=== PATIENT | male | born 1965 | race Caucasian/White ===

== ENCOUNTER 2019-11-28 13:36 | Emergency (ER) | payer OTHER ==
[~2019-11-28] VITALS: Ht 165.1 cm; Wt 74.4 kg
[2019-11-28 13:45] VITALS: BP 122/84
--- NOTE | 2019-11-28 13:50 | NUR ---
Pt ambulated to Lobby. Awaiting bed availability
--- NOTE | 2019-11-28 14:25 | NUR ---
Patient ambulated to bed 12. RN evaluating patient at bedside.
--- NOTE | 2019-11-28 15:07 | NUR ---
54 Y/O M C/C RIGHT HAND PAIN X 2 DAYS. PER PT WORKING WITH [employer]. PER ASSESSMENT PT CMS/ROM WDL, ABSCESS NOTED ON THE RIGHT HAND. 9/10 PAIN, SHARP. PT HAS NOT TAKEN OTC RX TO RELIEVE PAIN. PT NKA. HX HTN,ANXIETY,NEUROPATHY. RX BENAZAPRIL,GABAPENTIN. DENIES N/V/D. SIDE RAIL 1.
--- NOTE | 2019-11-28 15:26 | NUR ---
Xray at bedside
[2019-11-28] MEDS: IBUPROFEN 600 MG TAB PO ONE (15:27)
[2019-11-28 16:14] VITALS: BP 124/82
--- NOTE | 2019-11-28 16:14 | NUR ---
Patient discharged with v/s stable. Written and verbal after care instructions given and explained. Patient alert, oriented and verbalized understanding of instructions. Ambulatory with steady gait. All questions addressed prior to discharge. ID band removed. Patient advised to follow up with PMD. Rx of KEFLEX, IBUPROFEN given. Patient educated on indication of medication including possible reaction and side effects. Opportunity to ask questions provided and answered.
== END 2019-11-28 16:14 | disposition home or self-care (01) ==
LOC: MED 13:36
DX: L03.113 Cellulitis of right upper limb (principal); F41.9 Anxiety disorder, unspecified; I10 Essential (primary) hypertension
CPT/HCPCS: 73130; 99283; Q0092

== ENCOUNTER 2021-07-14 12:50 | Emergency (ER) | payer OTHER ==
[~2021-07-14] VITALS: Ht 165.1 cm; Wt 70.8 kg
[2021-07-14 13:00] VITALS: BP 126/89
--- NOTE | 2021-07-14 14:45 | NUR ---
ATTEMPTED TO CALL PT IN LOBBY, NO ANSWER
--- NOTE | 2021-07-14 15:20 | NUR ---
ATTEMPTED TO CALL PT A SECOND TIME, NO ANSWER PATIENT LEFT WITHOUT BEING SEEN BY DR. CALZADA. NO FURTHER CARE PROVIDED FOR PATIENT.
== END 2021-07-14 15:20 | disposition left against medical advice (07) ==
LOC: MED 12:50
DX: Z53.21 Procedure and treatment not carried out due to patient leaving prior to being seen by health care provider (principal)

== ENCOUNTER 2022-01-15 20:43 | Emergency (ER) | payer OTHER ==
[~2022-01-15] VITALS: Ht 165.1 cm; Wt 68.0 kg
[2022-01-15 20:50] VITALS: BP 120/90
--- NOTE | 2022-01-15 22:15 | NUR ---
PT AMBULATED TO BED #8
--- NOTE | 2022-01-15 22:23 | NUR ---
56 YO M BIBS W C/O nosebleed x 1 day. Patient reported, had nosebleed since yesterday, went to [facility], Rx Packing, started bleeding again today, bleeding will not stop. PMHx: DM, HTN
[2022-01-15] MEDS ORDERED: TRANEXAMIC ACID 1,000 MG/10 ML VIAL MC ONE (23:15)
[2022-01-15] MEDS ORDERED: AMOX-999 PO (23:44)
[2022-01-16 00:14] VITALS: BP 125/86
--- NOTE | 2022-01-16 00:16 | NUR ---
Patient discharged with v/s stable. Written and verbal after care instructions given and explained. Patient alert, oriented and verbalized understanding of instructions. Ambulatory with steady gait. All questions addressed prior to discharge. ID band removed. Patient advised to follow up with PMD. Rx of AUGMENTIN 500-125 given. Patient educated on indication of medication including possible reaction and side effects. Opportunity to ask questions provided and answered.
== END 2022-01-16 00:12 | disposition home or self-care (01) ==
LOC: MED 20:43
DX: R04.0 Epistaxis (principal); E11.9 Type 2 diabetes mellitus without complications; I10 Essential (primary) hypertension; Z79.4 Long term (current) use of insulin
CPT/HCPCS: 30901; 99284; J3490